=== PATIENT | female | born 1995 | race Two or more races ===

== ENCOUNTER 2024-06-30 19:35 | Emergency (ER) | payer MEDICAID, OTHER ==
[~2024-06-30] VITALS: Ht 167.6 cm; Wt 71.5 kg
--- NOTE | 2024-06-30 20:04 | ED.PDOC ---
SOB-HPI HPI Comments 29 year old female came to ER due to chest pains. Patient does have history of asthma. States for the past 2 weeks she has been having shortness of breath, wheezing and chest tightness. Patient would self medicate with inhalers and was prescribed a Z pack which she recently finished. She tested negative for COVID 19. Was advised by Urgent Care to proceed to the ER Chief Complaint: Chest Pain Time Seen by MD: 20:04 Reviewed notes: Nurses Notes Information Source: Patient Mode of Arrival: Ambulatory Severity: Moderate Timing: Days Duration: Intermittent Context: At Rest, With Light Exertion PE Risk Factors: None History of: Asthma Prehospital treatment: Breathing Tx Modifying Factors: Nothing Associated Signs and Symptoms: Wheeze, Cough, Chest Pain Quality: Tightness Radiation: No Radiation Location: Chest (R), Chest (L) If cough with SOB: Non-Productive Past Medical History PAST MEDICAL HISTORY: Asthma Surgical History: Denies all surgeries ZIPPER JOINER History: Denies all ZIPPER JOINER Hx Family History Family History: Reviewed,noncontributory to illness Social History Smoker: Non-Smoker Alcohol: Denies ETOH Use Drugs: Denies Drug Use Lives In: Home Constitutional: denies: chills, diaphoresis, fatigue, fever, malaise, sweats, weakness, others EENTM: denies: blurred vision, double vision, ear bleeding, ear discharge, ear drainage, ear pain, ear ringing, eye pain, eye redness, hearing loss, mouth pain, mouth swelling, nasal discharge, nose bleeding, nose congestion, nose pain, photophobia, tearing, throat pain, throat swelling, voice changes, others Respiratory: reports: cough, SOB at rest, shortness of breath, wheezing; denies: hemoptysis, orthopnea, SOB with excertion, stridor, others Cardiovascular: reports: chest pain; denies: dizzy spells, diaphoresis, Dyspnea on exertion, edema, irregular heart beat, left arm pain, lightheadedness, pal pitations, PND, syncope, others Gastrointestinal: reports: nausea, vomiting; denies: abdomen distended, abdominal pain, blood streaked bowels, constipated, diarrhea, dysphagia, difficulty swallowing, hematemesis, melena, poor appetite, poor fluid intake, rectal bleeding, rectal pain, others Genitourinary: denies: abnormal vagina bleeding, burning, dyspareunia, dysuria, flank pain, frequency, hematuria, incontinence, pain, , vagina discharge, urgency, others Neurological: denies: dizziness, fainting, headache, left sided numbness, left sided weakness, numbness, paresthesia, pre-existing deficit, right sided numbness, right sided weakness, seizure, speech problems, tingling, tremors, weakness, others Musculoskeletal: denies: back pain, gout, joint pain, joint swelling, muscle pain, muscle stiffness, neck pain, others Integumetry: denies: bruises, change in color, change in hair/nails, dryness, laceration, lesions, lumps, rash, wounds, others Allergic/Immunocompromised: denies: Difficulty Healing, Frequent Infections, Hives, Itching, others Hematologic/Lymphatic: denies: anemia, blood clots, easy bleeding, easy bruising, swollen glands, others Endocrine: denies: excessive hunger, excessive sweating, excessive thirst, excessive urination, flushing, intolerance to cold, intolerance to heat, une xplained weight gain, unexplained weight loss, others Psychiatric: denies: anxiety, bipolar disorder, depression, hopeless, panic disorder, schizophrenia, sleepless, suicidal, others Physical Exam General Appearance: No Apparent Distress, Normal HEENT: Normal ENT Inspection, Pharynx Normal, TMs Normal Neck: Full Range of Motion, Non-Tender, Normal, Normal Inspection Respiratory: Chest Non-Tender, Lungs Clear, No Accessory Muscle Use, No Respiratory Distress, Normal Breath Sounds Cardiovascular: No Edema, No JVD, No Murmur, No Gallop, Normal Peripheral Pulses, Regular Rate/Rhythm Breast Exam: Deferred Gastrointestinal: No Organomegaly, Non Tender, No Pulsatile Mass, Normal Bowel Sounds, Soft Genitalia: Deferred Pelvic: Deferred Rectal: Deferred Extremities: No calf tenderness, Normal capillary refill, Normal inspection, Normal range of motion, Non-tender, No pedal edema Musculoskeletal : Apperance: Normal Neurologic: Alert, qualitative executive researcher II-XII nml as Tested, No Motor Deficits, Normal Affect, Normal Mood, No Sensory Deficits Cerebellar Function: Normal Reflexes: Normal Skin: Dry, Normal Color, Warm Lymphatic: No Adenopathy EKG EKG : Pulse Rate (adult): 92 [place]: RAD Cardiac Rhythm: NSR Comments early repolarization Was a procedure done? Was a procedure done?: No Differential Dx Differential Diagnosis: Asthma, COPD, Pneumonia, Respiratory Distress, URI X-Ray, Labs, Meds, VS Vital Signs Date Time Temp Pulse Resp B/P (MAP) Pulse Ox O2 Delivery O2 Flow Rate FiO2 06/30/24 21:05 19 95 Room Air* 0 21 06/30/24 19:48 97.4 91 18 121/87 (98) 97 06/30/24 19:42 92 Lab Test 06/30/24 19:45 Range/Units Troponin I High Sensitivity < 3 L </=34 ng/L Current Medications Medications (Trade) Dose Ordered Sig/[place] Route Start Time Stop Time Status Last Admin Albuterol (Ventolin Medneb) 5 mg ONCE ONCE NEB 06/30/24 20:00 06/30/24 20:01 DC 06/30/24 21:06 Time of 1ST Reevaluation: 19:58 Reevaluation 1ST: Unchanged Time of 2ND Reevaluation: 22:00 Reevaluation 2ND: Improved Patient Education/Counseling: Diagnosis, Treatment Family Education/Counseling: No Family Present Departure 1 Departure Time of Disposition: 22:27 Impression: Primary Impression: Bronchospasm with bronchitis, acute Disposition: HOME / SELF CARE / HOMELESS Condition: Stable e-Prescriptions Albuterol Sulfate (Albuterol Sulfate Hfa) 108 Mcg/Act Aer 108 MCG IN Q4HR PRN for 10 Days, #1 AER Prov: PIPO SOLOMON MD 06/30/24 Prednisone (Prednisone) 10 Mg Jose 10 MG PO QID for 5 Days, #20 PACK Prov: PIPO SOLOMON MD 06/30/24 Doxycycline Hyclate (DOXYCYCLINE HYCLATE) 100 Mg Tab 1 TAB PO BID for 7 Days, #14 TAB Prov: PIPO SOLOMON MD 06/30/24 Discharged With: Self Critical Care Note Critical Care Time?: No Stability Stability form required: No Heart Score Heart Score: Heart Score Response (Comments) Value History Slightly Suspicious 0 EKG Normal 0 Age <45 0 Risk Factors 1 or 2 risk factors 1 Troponin Normal limit 0 Total 1 I personally scribed for PIPO SOLOMON MD ([email or web address]) on 06/30/24 at 20:04. Electronically submitted by Philipp Green ([email or web address]). PIPO SOLOMON MD Jun 30, 2024 20:04
[2024-06-30] MEDS ORDERED: DOXY-286 PO (20:45)
[2024-06-30] MEDS ORDERED: PRED1PAK9 PO (20:46)
[2024-06-30] MEDS ORDERED: ALBU108A5 IN (20:47)
[2024-06-30] MEDS: ALBUTEROL SULF 2.5 MG/0.5ML(0.5%) NEB SOLN NEB ONE (21:06)
[2024-06-30 23:23] VITALS: BP 120/81; TEMP 98.6
[2024-06-30 23:24] VITALS: PULSE 104; RESP 16; O2SAT 96
[2024-06-30] MEDS: predniSONE 20 MG TAB PO ONE (23:27)
--- NOTE | 2024-07-02 03:50 | ECG ---
[facility] Test Date: 2024-06-30 Test Time: 19:42:05 Pat Name: MUNIRA HOLLAND Department: ER Room: Gender: F Clinical Leader: KATALINA : 1995 Requested By: PIPO SOLOMON Order Number: [id number] Reading MD: Norm Do Measurements Intervals [place] Rate: 92 P: 68 AK: 135 QRS: 100 QRSD: 85 T: 70 QT: 344 QTc: 426 Interpretive Statements Sinus rhythm Borderline right axis deviation ST elev, probable normal early repol pattern Baseline wander in lead(s) II,III,aVF Electronically Signed On 07-04-2024 8:18:19 PST by Norm Do Please click the below link to view image of tracing.
== END 2024-06-30 23:31 | disposition home or self-care (01) ==
LOC: EDBD 19:38 → ER 19:38
DX: J20.9 Acute bronchitis, unspecified (principal); J45.909 Unspecified asthma, uncomplicated
CPT/HCPCS: 36415; 84484; 93005; 94640; 99284; J7512